=== PATIENT | female | born 1985 | race Hispanic/Latino ===

== ENCOUNTER 2017-07-25 15:36 | Emergency (ER) | payer SELFPAY ==
[~2017-07-25] VITALS: Ht 157.5 cm; Wt 64.4 kg
--- OUTSIDE RECORDS SUMMARY | 2017-07-25 15:38 | XMS REPORT | Clinical Summary ---
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 Disp. Refills Start End Date Status Date clindamycin (CLEOCIN T) 1 DAVID TO FACE BID 6 10/09/19 Active % external solution 17 montelukast (SINGULAIR) Take 1 tablet (10 mg 30 tablet 11 12/03/19 12/03/19 Active 10 mg tablet total) by mouth nightly. 17 18 albuterol (PROAIR HFA) 90 Inhale 2 puffs every 6 18 g 1 12/03/1911/13 Active mcg/actuation inhaler (six) hours as needed for 17 18 shortness of breath (wheezing). azithromycin (ZITHROMAX) Take 2 tablets the first 6 tablet 0 11/27/19 12/01/19 250 MG tablet day, then 1 tablet daily 17 17 for 4 days. predniSONE (DELTASONE) 20 2 tabs po daily x5 days 10 tablet 0 12/01/19 mg tablet 17 17 Hospital, Clinic, or Ordered Dose Route Frequency Start End Date Status Other Facility Date Administered Medication albuterol (ACCUNEB) 2.5 mg nebu once 12/03/19 12/03/19 Ended nebulizer solution 2.5 17 17 mgIndications: Dyspnea, unspecified type Active Problems Problem Noted Date PCOS (polycystic ovarian syndrome) 05/10/2015 Acne 08/04/2009 Irregular menses 08/03/2009 Encounters Date Type Specialty Care Team Description 12/02/2016 Office Visit Internal Medicine Viri Ashby MD Encounter for general adult medical examination with abnormal findings (Primary Dx); Reactive airway disease without complication, unspecified asthma severity, unspecified whether persistent; Seasonal allergic rhinitis, unspecified chronicity, unspecified trigger; Acne, unspecified acne type; Dyspnea, unspecified type 11/26/2016 Orders Only Internal Medicine Viri Ashby MD 11/21/2016 Office Visit Internal Medicine Viri Ashby MD Upper respiratory tract infection, unspecified type (Primary Dx); Myalgia; Fever, unspecified fever cause after 07/24/2016 Immunizations Name Dates Previously Given Next Due DTaP 08/19/2003, 09/24/1990 Hepatitis B 12/26/2009, 09/25/2009, 08/25/2009 IPV 09/24/1990 Influenza Trivalent 12/28/2009 MMR 09/24/1990, 07/21/1986 Meningococcal 08/19/2003 Polysaccharide PPD Test 12/26/2009, 08/07/2009 Tdap 12/26/2009 Family History Medical History Relation Name Comments Diabetes Maternal Grandfather Relation Name Status Comments Maternal Grandfather Social History Tobacco Use Types Packs/Day Years Used Date Never Smoker Alcohol Use Drinks/Week oz/Week Comments Yes socially on rare occassion Sex Assigned at Date Recorded Not on file Last Filed Vital Signs Vital Sign Reading Time Taken Blood Pressure 114/72 12/02/2016 2:34 PM CDT Pulse 70 12/02/2016 2:34 PM CDT Temperature 36.9 C (98.5 F) 12/02/2016 2:34 PM CDT Respiratory Rate 16 12/02/2016 2:34 PM CDT Oxygen Saturation 98% 12/02/2016 2:34 PM CDT Inhaled Oxygen - - Concentration Weight 70.3 kg (155 lb) 12/02/2016 2:34 PM CDT Height 154.9 cm (5' 1") 12/02/2016 2:34 PM CDT Body Mass Index 29.29 12/02/2016 2:34 PM CDT Plan of Treatment Health Maintenance Due Date Last Done Comments CERVICAL CANCER SCREENING 2006 INFLUENZA VACCINE 09/24/2017 12/28/2009 Results * XR Chest 2 Vw (12/02/2016 3:08 PM) Specimen Performing Laboratory [facility] [address] [place] [address] Narrative EXAMINATION:XR CHEST 2 VW CLINICAL HISTORY:R06.00 Dyspneaunspecified, castaneda COMPARISON:None IMPRESSION: 1.Lungs are clear. 2.Mediastinal contours and cardiac silhouette are unremarkable. 3.No acute osseous abnormality. [facility]-[id number] Procedure Note Hm Interface, Radiology Results Incoming - 12/02/2016 3:26 PM CDT EXAMINATION: XR CHEST 2 VW CLINICAL HISTORY: R06.00 Dyspnea unspecified, castaneda COMPARISON: None IMPRESSION: 1. Lungs are clear. 2. Mediastinal contours and cardiac silhouette are unremarkable. 3. No acute osseous abnormality. [facility]-[id number] * URINALYSIS, COMPLETE, WITH REFLEX TO CULTURE (12/02/2016 2:50 PM) Component Value Ref Range Color, UA YELLOW YELLOW Appearance CLEAR CLEAR Specific gravity, urine 1.015 1.001 - 1.035 pH, urine 6.5 5.0 - 8.0 Glucose, urine NEGATIVE NEGATIVE Bilirubin, UA NEGATIVE NEGATIVE Ketones, UA NEGATIVE NEGATIVE Occult blood, urine 2+ (A) NEGATIVE Protein, UA NEGATIVE NEGATIVE Nitrite, UA NEGATIVE NEGATIVE Leukocyte esterase, UA 2+ (A) NEGATIVE WBC, UA 10-20 (A) < OR=5 /HPF RBC, UA 0-2 < OR=2 /HPF Squamous epithelial 0-5 < OR=5 /HPF cells, UA Bacteria, UA NONE SEEN NONE SEEN /HPF Hyaline casts, UA NONE SEEN NONE SEEN /LPF Reflex CULTURE INDICATED - RESULTS TO FOLLOW Specimen Performing Laboratory [facility] * Vitamin D 25 hydroxy level (12/02/2016 2:50 PM) Component Value Ref Range Vitamin D, 25-hydroxy 13 (L) 30 - 100 ng/mL Comment: Vitamin D Status 25-OH Vitamin D: Deficiency: <20 ng/mL Insufficiency: 20 - 29 ng/mL Optimal: > or=30 ng/mL For 25-OH Vitamin D testing on patients on D2-supplementation and patients for whom quantitation of D2 and D3 fractions is required, the QuestAssureD(TM) 25-OH VIT D, (D2,D3), LC/MS/MS is recommended: order code 67012 (patients >2yrs). For more information on this test, go to: http://education.[employer]/faq/INO077 (This link is being provided for informational/educational purposes only.) Specimen Performing Laboratory [facility] * Dehydroepiandosterone sulfate (12/02/2016 2:50 PM) Component Value Ref Range DHEA sulfate 69 23 - 266 mcg/dL Specimen Performing Laboratory [facility] * Urine culture (12/02/2016 2:50 PM) Component Value Ref Range Urine culture SEE NOTE Comment: CULTURE, URINE, ROUTINE MICRO NUMBER: [id number] TEST STATUS: FINAL SPECIMEN SOURCE: URINE SPECIMEN QUALITY: ADEQUATE RESULT: Multiple organisms present, each less than 10,000 CFU/mL. These organisms, commonly found on external and internal genitalia, are considered to be colonizers. No further testing performed. Specimen Performing Laboratory [facility] * Thyroid stimulating hormone (12/02/2016 2:50 PM) Component Value Ref Range TSH 1.32 mIU/L Comment: Reference Range > or=20 Years 0.40-4.50 Ranges First trimester 0.26-2.66 Second trimester 0.55-2.73 Third trimester 0.43-2.91 Specimen Performing Laboratory [facility] * Testosterone (12/02/2016 2:50 PM) Component Value Ref Range Testosterone, total, 73 (H) 2 - 45 ng/dL lc/ms/ms Comment: This test was developed and its analytical performance characteristics have been determined by [facility]. It has not been cleared or approved by the US Food and Drug Administration. This assay has been validated pursuant to the CLIA regulations and is used for clinical purposes. Specimen Performing Laboratory [facility] * Hemoglobin A1c (12/02/2016 2:50 PM) Component Value Ref Range Hemoglobin A1C 4.9 <5.7 % of total Hgb Comment: For the purpose of screening for the presence of diabetes: <5.7% Consistent with the absence of diabetes 5.7-6.4% Consistent with increased risk for diabetes (prediabetes) > or=6.5% Consistent with diabetes This assay result is consistent with a decreased risk of diabetes. Currently, no consensus exists regarding use of hemoglobin A1c for diagnosis of diabetes in children. According to [place] Diabetes Association (ADA) guidelines, hemoglobin A1c <7.0% represents optimal control in non- diabetic patients. Different metrics may apply to specific patient populations. Standards of Medical Care in Diabetes(ADA). Specimen Performing Laboratory [facility] * Lipid panel (12/02/2016 2:50 PM) Component Value Ref Range Cholesterol, total 174 <200 mg/dL HDL cholesterol 61 >50 mg/dL Triglycerides 78 <150 mg/dL LDL cholesterol 96 mg/dL (calc) calculated Comment: Reference range: <100 Desirable range <100 mg/dL for patients with CHD or diabetes and <70 mg/dL for diabetic patients with known heart disease. LDL-C is now calculated using the Izabela calculation, which is a validated novel method providing better accuracy than the Friedewald equation in the estimation of LDL-C. Valente SAXENA et al. FRANKI. 2013;310(21): 3006-7547 (http://education.[employer]/faq/PVV805) Cholesterol/HDL ratio 2.9 <5.0 (calc) Non-HDL cholesterol 113 <130 mg/dL (calc) Comment: For patients with diabetes plus 1 major ASCVD risk factor, treating to a non-HDL-C goal of <100 mg/dL (LDL-C of <70 mg/dL) is considered a therapeutic option. Specimen Performing Laboratory [facility] * POC Influenza A/B (11/21/2016 3:31 PM) Component Value Ref Range Rapid Influenza A Ag neg Rapid Influenza B Ag neg Specimen Performing Laboratory Nasopharyngeal * POC rapid strep A (11/21/2016 3:31 PM) Component Value Ref Range Rapid strep A antigen Negative Negative result Specimen Performing Laboratory Swab * CBC with platelet and differential (11/21/2016 2:44 PM) Component Value Ref Range WBC 8.7 3.8 - 10.8 Thousand/uL RBC 4.80 3.80 - 5.10 Million/uL HGB 14.1 11.7 - 15.5 g/dL HCT 41.8 35.0 - 45.0 % MCV 87.1 80.0 - 100.0 fL MCH 29.4 27.0 - 33.0 pg MCHC 33.7 32.0 - 36.0 g/dL RDW 12.4 11.0 - 15.0 % Platelet count 223 140 - 400 Thousand/uL MPV 11.8 7.5 - 12.5 fL Neutrophils, absolute 5,933 1,500 - 7,800 cells/uL Lymphocytes, absolute 1,827 850 - 3,900 cells/uL Monocytes, absolute 757 200 - 950 cells/uL Eosinophils, absolute 139 15 - 500 cells/uL Basophils, absolute 44 0 - 200 cells/uL Neutrophils 68.2 % Lymphocytes 21.0 % Monocytes 8.7 % Eosinophils 1.6 % Basophils + RC 0.5 % Specimen Performing Laboratory [facility] * Comprehensive metabolic panel (11/21/2016 2:44 PM) Component Value Ref Range Glucose 85 65 - 99 mg/dL Comment: Fasting reference interval BUN, whole blood 10 7 - 25 mg/dL Creatinine 0.71 0.50 - 1.10 mg/dL EGFR Non-Afr. Indonesian 113 > OR=60 mL/min/1.73m2 EGFR 132 > OR=60 mL/min/1.73m2 BUN/creatinine ratio NOT APPLICABLE 6 - 22 (calc) Sodium 141 135 - 146 mmol/L Potassium 3.8 3.5 - 5.3 mmol/L Chloride 106 98 - 110 mmol/L CO2 30 20 - 31 mmol/L Calcium 9.3 8.6 - 10.2 mg/dL Protein 6.8 6.1 - 8.1 g/dL Albumin, S 4.6 3.6 - 5.1 g/dL Globulin, total 2.2 1.9 - 3.7 g/dL (calc) Albumin/globulin ratio 2.1 1.0 - 2.5 (calc) Total bilirubin 0.5 0.2 - 1.2 mg/dL Alkaline phosphatase 73 33 - 115 U/L AST 14 10 - 30 U/L ALT 13 6 - 29 U/L Specimen Performing Laboratory [facility] after 07/24/2016 Insurance Payer Benefit Subscriber ID Type Phone Address Plan / Group [employer] xxxxxxxxxxx [place]ESS/[place] [address]
[2017-07-25 17:16] VITALS: BP 142/80
== END 2017-07-25 17:47 | disposition home or self-care (01) ==
LOC: ER 15:36
DX: Z77.21 Contact with and (suspected) exposure to potentially hazardous body fluids (principal); Y99.0 Civilian activity done for income or pay
CPT/HCPCS: 99283